=== PATIENT | male | born 1955 | race Caucasian/White ===

== ENCOUNTER 2017-01-30 01:01 | Emergency (ER) | payer OTHER ==
[2017-01-30 01:06] VITALS: BP 166/93; PULSE 86; RESP 16; TEMP 97.8; O2SAT 98
[2017-01-30] MEDS ORDERED: SODIUM CHLOR 0.9% 1000 ML INJ 1,000 ML IV SCH (01:21)
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
[2017-01-30 02:36] LABS: AUTOMATED NEUTROPHIL # 4.5 TH/MM3 (1.8-7.7); BASOPHIL % 0.4 % (0.0-2.0); EOSINOPHIL # 0.2 TH/MM3 (0-0.4); EOSINOPHIL % 2.7 % (0.0-4.0); HEMATOCRIT 45.2 % (39.0-51.0); HEMO FLAGS DIFF FINAL; LYMPH % 26.7 % (9.0-44.0); MEAN CELL VOLUME 96.4 FL (80.0-100.0); MEAN CORPUSCULAR HEMOGLOBIN 31.7 PG (27.0-34.0); MEAN CORPUSCULAR HGB CONC 32.9 % (32.0-36.0); MONO % 10.3 % (0.0-8.0); NEUT % 59.9 % (16.0-70.0); PLATELET COUNT 199 TH/MM3 (150-450); RED BLOOD COUNT 4.68 MIL/MM3 (4.50-5.90); RED CELL DISTRIBUTION WIDTH 13.8 % (11.6-17.2); WHITE BLOOD COUNT 7.6 TH/MM3 (4.0-11.0)
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
[2017-01-30 02:51] LABS: APTT (PATIENT) 29.6 SEC (24.3-30.1); PROTHROMBIN TIME - PATIENT 10.5 SEC (9.8-11.6)
[2017-01-30 02:55] LABS: BICARBONATE 28.5 MEQ/L (21.0-32.0); POTASSIUM 4.3 MEQ/L (3.5-5.1)
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
[2017-01-30] MEDS ORDERED: IOHEXOL 350 MG/ML 10 ML VIAL (for RAD DIAG) IV ONE (03:56)
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
[2017-01-30] MEDS ORDERED: IBUPROFEN 600 MG TAB PO ONE (06:30)
== END 2017-01-30 06:59 | disposition home or self-care (01) ==
LOC: NEPE 01:01
DX: M25.562 Pain in left knee (principal); M25.561 Pain in right knee; F10.929 Alcohol use, unspecified with intoxication, unspecified; V03.10XA Pedestrian on foot injured in collision with car, pick-up truck or van in traffic accident, initial encounter; Y92.488 Other paved roadways as the place of occurrence of the external cause; Y90.6 Blood alcohol level of 120-199 mg/100 ml; Z72.0 Tobacco use
CPT/HCPCS: 70450; 71010; 71260; 72125; 73080; 73564; 74177; 80048; 80307; 85025; 85610; 85730; 86850; 86900; 86901; 96360; 99285; J7030; Q9967

== ENCOUNTER 2017-02-04 09:29 | Emergency (ER) | payer OTHER ==
[~2017-02-04] VITALS: Ht 177.8 cm; Wt 73.0 kg
[2017-02-04 09:32] VITALS: BP 119/63; PULSE 75; RESP 16; TEMP 98.2; O2SAT 94
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
== END 2017-02-04 10:48 | disposition home or self-care (01) ==
LOC: NEPD 09:29
DX: S99.912A Unspecified injury of left ankle, initial encounter (principal); V09.9XXA Pedestrian injured in unspecified transport accident, initial encounter
CPT/HCPCS: 73610; 99283